=== PATIENT | female | born 1995 | race African-American/Black ===

== ENCOUNTER 2019-02-20 21:51 | Emergency (ER) | payer MEDICAID ==
[~2019-02-20] VITALS: Ht 167.6 cm; Wt 61.0 kg
[2019-02-20] MEDS ORDERED: METHOCARBAMOL 500MG TABLET PO ONE (22:30)
[2019-02-20] MEDS ORDERED: KETOROLAC 30MG/ML VIAL IM ONE (22:30)
[2019-02-21 02:36] VITALS: BP 122/74
== END 2019-02-21 02:39 | disposition home or self-care (01) ==
LOC: ER 22:46
DX: M54.5 Low back pain (principal); M54.6 Pain in thoracic spine; V46.5XXA Car driver injured in collision with other nonmotor vehicle in traffic accident, initial encounter; Y93.89 Activity, other specified; Y92.488 Other paved roadways as the place of occurrence of the external cause
CPT/HCPCS: 72070; 72100; 96372; 99283; J1885; Z7610